=== PATIENT | female | born 2000 | race African-American/Black ===

== ENCOUNTER 2023-12-28 10:25 | Emergency (ER) | payer OTHER, SELFPAY ==
[2023-12-28 10:33] VITALS: BP 118/76; PULSE 71; RESP 12; TEMP 36.9; O2SAT 98; BMI 29.3
--- NOTE | 2023-12-28 10:47 | PC.NURSE ---
Three weeks ago completed 10 day course of penicillin. Patient states it never got completely better. Pain and swelling has increased over the last couple days, states her voice is sounding little different.
[2023-12-28 11:13] LABS: Strep Grp A by PCR Rapid NEGATIVE (Negative)
--- NOTE | 2023-12-28 11:26 | ED_ITS ---
HPI - URI/Sore Throat <Darlin Mejia PA-C - Last Filed: 12/28/23 11:39> General Chief Complaint: Upper Respiratory Symptoms Stated Complaint: swollen tonsils Time Seen by Provider: 12/28/23 10:31 Source: patient Mode of arrival: Ambulatory History of Present Illness HPI Narrative: Is a 23-year-old woman with history of frequent strep infections who presents to the ER with concern for persistent throat pain and swelling after being treated for strep approximately 3 weeks ago. Patient states she has had multiple strep infections which have usually cleared with amoxicillin in the past. [place] the [place]. She states this helped a fair amount with her pain but did little to reduce the swelling. Since she finished the medication she has had persistent difficulty with eating because of the swelling of her tonsils and 2 days ago her pain increased again and she feels the swelling has also increased. Patient states a few years ago was recommended to her that she may need to have her tonsils out however she did not have insurance at that time and did not pursue this. She denies any recent fevers chills nausea vomiting, difficulty breathing rash or any other symptoms or complaints. Related Data Previous Rx's Medication Instructions Recorded amoxicillin 875 mg-potassium 1 tab PO Q12H bacterial 12/28/23 clavulanate 125 mg tablet pharyngitis 12 days #24 tabs Allergies Allergy/AdvReac Type Severity Reaction Status Date / Time No Known Drug Allergies Allergy Verified 12/28/23 10:37 Review of Systems <Darlin Mejia PA-C - Last Filed: 12/28/23 11:39> Review of Systems Narrative: See HPI Patient History <Darlin Mejia PA-C - Last Filed: 12/28/23 11:39> Social History Smoking Status: Never smoker Smoking Status: Never smoker Substance Use Type: does not use Exam <Darlin Mejia PA-C - Last Filed: 12/28/23 11:39> Narrative Exam Narrative: GENERAL: [23] year old patient appears stated age. Well-developed patient, in mild distress, nontoxic appearing. HEAD: Atraumatic. Normocephalic. EYES: Pupils equal round and reactive. Extraocular motions intact. No scleral icterus. No injection or drainage. ENT: Nose without bleeding, purulent drainage. Throat with very mild erythema, there is 2+ tonsillar hypertrophy bilaterally, slightly larger on the right, uvula is midline very slight exudate. Airway patent/without stridor or compromise. Bilateral tonsillar lymphadenopathy that is tender slightly more prominent on the right. NECK: Trachea midline. Non tender CARDIOVASCULAR: Regular rate and rhythm without murmurs, gallops, or rubs. RESPIRATORY: Clear to auscultation. Breath sounds equal bilaterally. No wheezes, rales, or rhonchi. EXTREMITIES: Moving all extremities, normal gait NEURO: AOx3. SKIN: No rash or erythema of visible areas Initial Vital Signs Initial Vital Signs: Vital Signs Temperature 98.4 F 12/28/23 10:33 Pulse Rate 71 12/28/23 10:33 Respiratory Rate 12 12/28/23 10:33 Blood Pressure 118/76 12/28/23 10:33 Pulse Oximetry 98 12/28/23 10:33 Oxygen Delivery Method Room Air 12/28/23 10:33 <Gordo Houser DO - Last Filed: 12/28/23 13:26> Initial Vital Signs Initial Vital Signs: Vital Signs Temperature 98.4 F 12/28/23 10:33 Pulse Rate 71 12/28/23 10:33 Respiratory Rate 12 12/28/23 10:33 Blood Pressure 118/76 12/28/23 10:33 Pulse Oximetry 98 12/28/23 10:33 Oxygen Delivery Method Room Air 12/28/23 10:33 Course <Darlin Mejia PA-C - Last Filed: 12/28/23 11:39> Orders Ordered: ED Orders 12/28/23 10:42 Strep Grp A by PCR Rapid Stat Throat Culture Stat Discontinued Medications Dexamethasone (Dexamethasone 10 Mg/Ml Vial) 10 mg PO NOW ONE Stop: 12/28/23 11:27 Last Admin: 12/28/23 11:34 Dose: 10 mg Documented By: VANCE Ibuprofen (Ibuprofen 400 Mg Tablet) 400 mg PO NOW ONE Stop: 12/28/23 11:27 Last Admin: 12/28/23 11:36 Dose: 400 mg Documented By: VANCE Vital Signs Vital signs: Vital Signs - 8 hr 12/28/23 10:33 Temperature 98.4 F Pulse Rate 71 Respiratory Rate 12 Blood Pressure 118/76 Pulse Oximetry 98 Oxygen Delivery Method Room Air <Gordo Houser DO - Last Filed: 12/28/23 13:26> Orders Ordered: ED Orders 12/28/23 10:42 Strep Grp A by PCR Rapid Stat Throat Culture Stat Discontinued Medications Dexamethasone (Dexamethasone 10 Mg/Ml Vial) 10 mg PO NOW ONE Stop: 12/28/23 11:27 Last Admin: 12/28/23 11:34 Dose: 10 mg Documented By: VANCE Ibuprofen (Ibuprofen 400 Mg Tablet) 400 mg PO NOW ONE Stop: 12/28/23 11:27 Last Admin: 12/28/23 11:36 Dose: 400 mg Documented By: VANCE Vital Signs Vital signs: Vital Signs - 8 hr 12/28/23 10:33 Temperature 98.4 F Pulse Rate 71 Respiratory Rate 12 Blood Pressure 118/76 Pulse Oximetry 98 Oxygen Delivery Method Room Air MDM - URI/Sore Throat <Darlin Mejia PA-C - Last Filed: 12/28/23 11:39> Differential Diagnosis Differential diagnosis: Likely upper respiratory infection and pharyngitis (Bacterial) Medical Records Attestation: I reviewed the patient's medical records. Lab Data Attestation: I reviewed the patient's lab results. Labs: Lab Results 12/28/23 Range/Units 10:42 Group A Strep (PCR) Negative (Negative) MDM Narrative Medical decision making narrative: This is a well-appearing 23-year-old woman with unremarkable vitals who has a pertinent history of frequent strep throat infections recently treated for strep and finished a course of penicillin 3 weeks ago. Presented today with concern for persistent pain and swelling in her throat worsening slightly in the last 2 days. Patient has unremarkable vitals today, she has been afebrile and has not had difficulty with taking in fluids or any breathing difficulty or airway compromise. She is nontoxic appearing today. 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 And advanced imaging is not obtained. She does have physiologically large tonsils and I suspect a persistent infection that was incompletely treated with the penicillin she took 3 weeks ago, however rapid strep does returned negative today. A throat culture sent for further evaluation. Oral dexamethasone today 10 mg for control of inflammation, patient is also advised to take ibuprofen or Advil in addition to Tylenol to help with her symptoms. Prescription for Augmentin for 12 day course. She is advised to see ENT as soon as possible for close follow-up and to discuss options for possible tonsillectomy if indicated. Return to the emergency department or seek medical care if persistent or worsening symptoms. Return precautions provided, follow-up plan discussed, all questions answered. <Gordo Houser, DO - Last Filed: 12/28/23 13:26> Lab Data Labs: Lab Results 12/28/23 Range/Units 10:42 Group A Strep (PCR) Negative (Negative) Discharge Plan Departure Patient Disposition: Home Clinical Impression: Bacterial pharyngitis, Hypertrophy of tonsils Activity Restrictions/Additional Instructions: *You have been diagnosed with [bacterial pharyngitis, tonsillar hypertrophy] *What to do: *Please continue to take your regular medications as directed. [1 ] New medication prescriptions sent to your pharmacy: [Augmentin] [ ] New medication written as a paper prescription [ ] No new medications given *Please follow up with your primary care provider in 2-3 days, call for an appointment. Let them know you were seen in the Emergency Department and that we ask that you be seen in follow up. We will electronically transmit a record of today's note if your PCP is in our system. You came into the ER today with concern for persistent throat pain and swelling even after taking antibiotics in the end of October for strep throat. Rapid strep test today was negative however I am concerned that you have a persistent infection that was not fully treated with a previous antibiotics. It would be very good idea for you to see research nutritionist soon, I have included some names of some ENT specialist in the area. [place] were you can certainly see them as well. I have prescribed a 12 day course of Augmentin for you, we also gave you a dose of oral steroids today in the emergency department to help reduce swelling and inflammation. It would strongly encourage you to try taking Advil or ibuprofen in addition to Tylenol as this will help with the inflammation and pain both. If you do develop fevers chills worsening swelling in your throat or any difficulty breathing or other symptoms of concern please make sure you seek re-evaluation immediately. I hope you feel better soon. *If you do not have a primary care provider please contact the [facility] Resource line at [phone]. They will ask some questions about your medical history and help get you set up with a doctor in the community. *Return to Emergency Department if you should have any new, worsening or concerning symptoms, such as [fever greater than 101 F, shaking chills, worsening pain, persistent vomiting or other bothersome symptoms] Prescriptions: New amoxicillin-pot clavulanate 875-125 mg tablet 1 tab PO Q12H 12 Days Qty: 24 0RF Referrals: Manpreet Hall MD [Physician] - Tawanda Eduardo MD [Physician] - Frandy Garcia MD [Physician] - Chivo Silverio MD [Physician] - Provider,Sravanthi KELLER [Primary Care Provider] - Stand Alone Forms: Patient Portal/API ED Sign-out <Gordo Houser DO - Last Filed: 12/28/23 13:26> Cosign ED Attending Cosignature Attestation: Dr Houser Co-Sign Statement: I was available for consultation during this patient's emergency department visit. This chart is signed by myself for administrative purposes only. I did not have direct contact with this patient during this visit. They were seen independently by the APC.
[2023-12-28] MEDS: DEXAMETHASONE 10 MG/ML VIAL PO (11:34)
[2023-12-28] MEDS: IBUPROFEN 400 MG TABLET PO (11:36)
== END 2023-12-28 11:47 | disposition home or self-care (01) ==
PROVIDERS: Emergency Medicine; Emergency Provider Student in an Organized Health Care Education/Training Program
DX: J02.8 Acute pharyngitis due to other specified organisms (principal); J35.1 Hypertrophy of tonsils
CPT/HCPCS: 87070; 87651; 99283; J1100

== ENCOUNTER 2024-10-30 12:59 | Emergency (ER) | payer OTHER, SELFPAY ==
[2024-10-30 13:26] VITALS: BP 126/81; PULSE 78; RESP 16; TEMP 36.5; O2SAT 100
[2024-10-30 14:11] LABS: COVID-19 CEPHEID 4-PLEX PCR Negative (Negative); Influenza A - CEPHEID Flu A NEGATIVE (NEGATIVE); Influenza B - CEPHEID Flu B NEGATIVE (NEGATIVE); Respiratory Syncytial Virus Negative (Negative)
[2024-10-30 15:47] LABS: Strep Grp A by PCR Rapid Negative (Negative)
--- NOTE | 2024-10-30 18:21 | ED.URI ---
HPI - URI/Sore Throat General Chief Complaint: Upper Respiratory Symptoms Stated Complaint: hx of strep, sore throat Source: patient Mode of arrival: Ambulatory Related Data Home Medications Medication Instructions Recorded Confirmed No Known Home Medications 10/30/24 10/30/24 Allergies Allergy/AdvReac Type Severity Reaction Status Date / Time No Known Drug Allergies Allergy Verified 10/30/24 13:29 Patient History Social History Smoking Status: Never smoker Smoking Status: Never smoker Exam Initial Vital Signs Initial Vital Signs: Vital Signs Temperature 97.7 F 10/30/24 13:26 Pulse Rate 78 10/30/24 13:26 Respiratory Rate 16 10/30/24 13:26 Blood Pressure 126/81 10/30/24 13:26 Pulse Oximetry 100 10/30/24 13:26 Oxygen Delivery Method Room Air 10/30/24 13:26 Course Orders Ordered: ED Orders 10/30/24 13:20 Covid-19 + FLU A/B + RSV - PCR Stat Strep Grp A by PCR Rapid Stat Throat Culture Stat Vital Signs Vital signs: Vital Signs - 8 hr 10/30/24 13:26 Temperature 97.7 F Pulse Rate 78 Respiratory Rate 16 Blood Pressure 126/81 Pulse Oximetry 100 Oxygen Delivery Method Room Air MDM - URI/Sore Throat Medical Records Medical records narrative: The provider did not see this patient because they left without being seen after triage. Therefore chart could not be generated. Lab Data Labs: Lab Results 10/30/24 Range/Units 13:20 SARS-CoV-2 (PCR) Negative (Negative) Influenza A (RT-PCR) Flu a negative (NEGATIVE) Influenza B (RT-PCR) Flu b negative (NEGATIVE) RSV (PCR) Negative (Negative) Group A Strep (PCR) Negative (Negative) Discharge Plan Departure Patient Disposition: Left Without Being Seen Clinical Impression: Patient left after initial treatment Prescriptions: No Action No Known Home Medications
== END 2024-10-30 15:54 | disposition left against medical advice (07) ==
PROVIDERS: Emergency Provider Emergency Medicine
DX: Z53.21 Procedure and treatment not carried out due to patient leaving prior to being seen by health care provider (principal); J02.9 Acute pharyngitis, unspecified
CPT/HCPCS: 0241U; 87070; 87651; 99281

== ENCOUNTER 2024-12-02 14:14 | Emergency (ER) | payer OTHER, SELFPAY ==
[2024-12-02 14:39] VITALS: BP 130/82; PULSE 76; RESP 16; TEMP 36.7; O2SAT 99; BMI 30.2
--- NOTE | 2024-12-02 15:13 | DI.RAD.S_ITS ---
PROCEDURE: XR LUMBAR SPINE 2-3V INDICATIONS: fall TECHNIQUE: 3 views of the lumbar spine were acquired. COMPARISON: None. FINDINGS: Bones: 5 [id number] vertebrae are present. There is normal bony alignment. No vertebral body compression fractures. No suspicious bony lesions. Soft tissues: Overlying bowel gas pattern is normal. No suspicious soft tissue calcifications. IMPRESSION: No acute bony abnormality. Dictated by: Clifton Fajardo M.D. on 12/02/2024 at 15:50 Approved by: Clifton Fajardo M.D. on 12/02/2024 at 15:51
--- NOTE | 2024-12-02 15:13 | DI.RAD.S_ITS ---
PROCEDURE: XR SACRUM COCCYX MIN 2V INDICATIONS: fall TECHNIQUE: 3 views of the sacrum and coccyx acquired. COMPARISON: None. FINDINGS: Bones: No acute fractures or dislocations. No suspicious bony lesions. Soft tissues: Visualized bowel gas pattern is normal. No suspicious soft tissue densities. IMPRESSION: No acute osseous abnormality. If symptoms persist or if there is continued clinical concern, cross-sectional imaging such as MRI or CT may be helpful for further evaluation. Approved by: Calvin Bsuh M.D. on 12/02/2024 at 16:11
[2024-12-02 17:42] VITALS: BP 124/66; PULSE 90; RESP 16; O2SAT 99
--- NOTE | 2024-12-02 18:24 | ED_ITS ---
HPI - Fall <Daniel Alamo PA-C - Last Filed: 12/02/24 18:28> General Chief Complaint: Fall Stated Complaint: Hurt tailbone Time Seen by Provider: 12/02/24 15:15 Source: patient Mode of arrival: Family Vehicle History of Present Illness HPI Narrative: 24-year-old female presents to the ED status post a tailbone injury sustained just prior to arrival. Patient fell when she was sitting on a small table that broke, causing her to fall on her bottom. Patient is complaining of tailbone pain. Pain does not radiate. No numbness, tingling, weakness. No urinary hesitancy. Patient was able to urinate normally after the injury. Patient able to bear weight and walk. Related Data Previous Rx's ?Medication ?Instructions ?Recorded cyclobenzaprine 10 mg tablet 10 mg PO TID PRN muscle s pas #14 12/02/24 tabs Allergies Allergy/AdvReac Type Severity Reaction Status Date / Time No Known Drug Allergies Allergy Verified 12/02/24 14:39 Review of Systems <Daniel Alamo PA-C - Last Filed: 12/02/24 18:28> Constitutional Constitutional: Denies chills, Denies fatigue, Denies fever(s), Denies frequent falls, Denies lethargy and Denies weakness Eyes Eyes: Denies change in vision, Denies eye discharge, Denies irritation and Denies loss of vision ENT Ears, Nose, Mouth, and Throat: Denies change in voice, Denies dizziness, Denies neck pain, Denies sore throat and Denies throat swelling Cardiovascular Cardiovascular: Denies chest pain, Denies irregular heart rhythm, Denies lightheadedness, Denies palpitations, Denies dyspnea, Denies dyspnea on exertion and Denies orthopnea Respiratory Respiratory: Denies cough, Denies dyspnea, Denies dyspnea on exertion and Denies wheezing Gastrointestinal Gastrointestinal: Denies abdominal pain, Denies change in bowel habits, Denies diarrhea, Denies nausea and Denies vomiting Musculoskeletal Musculoskeletal: Reports back pain, Denies neck pain and Denies numbness Integumentary/Breasts Skin/Breast: Denies pruritus, Denies erythema, Denies rash and Denies wounds Neurologic Neurologic: Denies behavioral changes, Denies confusion, Denies dizziness, Denies frequent falls, Denies loss of vision, Denies numbness and Denies weakness Psychiatric Psychiatric: Denies anxiety, Denies behavioral changes, Denies confusion, Denies depression, Denies homicidal ideation and Denies suicidal ideation Endocrine Endocrine: Denies fatigue, Denies flushing and Denies palpitations Hematologic/Lymphatic Hematologic/Lymphatic: Denies easy bruising Allergic/Immunologic Allergic/Immunologic: Denies urticaria, Denies throat swelling and Denies wheezing Exam <JIM Real Last Filed: 12/02/24 18:28> Narrative Exam Narrative: Const General:?cooperative, healthy appearing and comfortable [facility] Head:?normal to inspection Ears:?hearing grossly normal bilaterally Nose:?external nose normal Face and sinus:?normal facial exam and sinuses nontender Mouth:?oral mucosae normal Throat:?posterior oropharynx normal Eyes General:?appearance normal, both eyes and all related structures Neck Neck:?normal visual inspection and no lymphadenopathy noted Resp Effort & Inspection:?normal respiratory effort Auscultation:?clear to auscultation bilaterally Cardio Rate:?regular rate Rhythm:?regular rhythm Musculoskeletal There is some tenderness to palpation in the sacrum, coccyx regions. No paraspinal tenderness to palpation. Neurovascularly intact. Gait is normal. Neuro General:?patient alert, patient awake and patient oriented x3 Initial Vital Signs Initial Vital Signs: Vital Signs Temperature 98.0 F 12/02/24 14:39 Pulse Rate 76 12/02/24 14:39 Respiratory Rate 16 12/02/24 14:39 Blood Pressure 130/82 12/02/24 14:39 Pulse Oximetry 99 12/02/24 14:39 Oxygen Delivery Method Room Air 12/02/24 14:39 <Macho Yoon MD - Last Filed: 12/02/24 20:39> Initial Vital Signs Initial Vital Signs: Vital Signs Temperature 98.0 F 12/02/24 14:39 Pulse Rate 76 12/02/24 14:39 Respiratory Rate 16 12/02/24 14:39 Blood Pressure 130/82 12/02/24 14:39 Pulse Oximetry 99 12/02/24 14:39 Oxygen Delivery Method Room Air 12/02/24 14:39 Course <JIM Real Last Filed: 12/02/24 18:28> Orders Ordered: ED Orders 12/02/24 15:13 XR lumbar spine 2-3V Stat XR sacrum coccyx min 2V Stat Vital Signs Vital signs: Vital Signs - 8 hr 12/02/24 14:39 12/02/24 17:42 Temperature 98.0 F Pulse Rate 76 90 Respiratory Rate 16 16 Blood Pressure 130/82 124/66 Pulse Oximetry 99 99 Oxygen Delivery Method Room Air Room Air <Macho Yoon MD - Last Filed: 12/02/24 20:39> Orders Ordered: ED Orders 12/02/24 15:13 XR lumbar spine 2-3V Stat XR sacrum coccyx min 2V Stat Vital Signs Vital signs: Vital Signs - 8 hr 12/02/24 14:39 12/02/24 17:42 Temperature 98.0 F Pulse Rate 76 90 Respiratory Rate 16 16 Blood Pressure 130/82 124/66 Pulse Oximetry 99 99 Oxygen Delivery Method Room Air Room Air MDM - Fall <Daniel Alamo PA-C - Last Filed: 12/02/24 18:28> MDM Narrative Medical decision making narrative: 24-year-old female presents to the ED status post a tailbone injury sustained just prior to arrival. Concern for fracture/dislocation versus musculoskeletal sprain/strain versus other. X-rays the coccyx, sacrum, lumbar spine obtained which were without acute findings. Patient's symptoms most consistent with a musculoskeletal sprain/strain of the lower back and coccyx. Patient prescribed muscle relaxants. Recommend Tylenol, ibuprofen. ED return precautions were discussed with patient. Patient verbalized understanding. Medical records reviewed: Yes Discharge Plan Departure Patient Disposition: Home Clinical Impression: Tailbone injury Qualifiers: Encounter type: initial encounter Qualified Code(s): S39.92XA - Unspecified injury of lower back, initial encounter Instructions: Low Back Pain Activity Restrictions/Additional Instructions: You were evaluated in the ED today for tailbone and lower back pain. Your x- rays were normal. It appears that you might have sprain/bruised your tailbone and lower back which is causing your symptoms. You are being prescribed a muscle relaxant for pain relief. It might make you sleepy, therefore please refrain from taking when driving or operating machinery. You may also take Tylenol and ibuprofen in addition to the muscle relaxant for pain relief. Please follow-up with your PCP as soon as possible. Return to the ED if you have worsening symptoms, numbness, tingling, weakness, urinary difficulties. Prescriptions: New cyclobenzaprine 10 mg tablet 10 mg PO TID PRN (Reason: muscle spasm) Qty: 14 0RF Referrals: Provider,Sravanthi KELLER [Primary Care Provider, Family Practice] Stand Alone Forms: Patient Portal/API, Work Release Note ED Sign-out <Macho Yoon MD - Last Filed: 12/02/24 20:39> Cosign ED Attending Cosignature Attestation: Patient was in the emergency department and a separate care area during their time of evaluation, I was available for consultation but was not consulted upon. Patient was seen independently by above SHELLEY
== END 2024-12-02 17:43 | disposition home or self-care (01) ==
PROVIDERS: Emergency Provider Student in an Organized Health Care Education/Training Program
DX: S39.92XA Unspecified injury of lower back, initial encounter (principal); W08.XXXA Fall from other furniture, initial encounter
CPT/HCPCS: 72100; 72220; 99281; 99283